=== PATIENT | male | born 1975 | race African-American/Black ===

== ENCOUNTER 2020-06-18 10:55 | Outpatient (CLI) | payer OTHER ==
--- NOTE | 2020-06-18 14:17 | RAD ---
RIGHT KNEE 3 VIEWS: Date: 06/18/2020 INDICATION: History of right knee pain. COMPARISON: None. FINDINGS: There are small marginal osteophytes affecting the medial femorotibial and patellofemoral compartment . Enthesopathic change is seen off the superior patella. There is mild joint capsular distention. No acute fracture is evident. IMPRESSION: Mild osteoarthrosis of the right knee with mild joint capsular distention. POS: BH
== END 2020-06-18 10:56 | disposition home or self-care (01) ==
LOC: SCSRAD 10:55
PROVIDERS: ATTEND Physician Assistant
DX: M25.561 Pain in right knee (principal); M17.11 Unilateral primary osteoarthritis, right knee; M25.861 Other specified joint disorders, right knee
CPT/HCPCS: 80053; 83520; 85652; 86038; 86140; 86200; 86225

== ENCOUNTER 2024-05-25 07:39 | Outpatient (CLI) | payer BC ==
[2024-05-25 09:07] LABS: #Basophils 0.08 10x3/uL (0.0-0.2); %Basophils 0.9 % (0.0-1.0); %Eosinophils 6.5 % (0.0-10.0); %Lymphocytes 42.2 % (21.0-51.0); %Monocytes 7.7 % (0.0-10.0); %Neutrophils 42.4 % (42.0-75.0); Hematocrit 38.3 % (42.0-52.0); Hemoglobin 13.7 g/dL (14.0-18.0); Mean Corpuscular HGB CONC 35.8 g/dL (32.0-36.0); Mean Corpuscular Hemoglobin 32.2 pg (27.0-31.0); Mean Corpuscular Volume 89.9 fL (78.0-98.0); Platelet Count 309 10x3/uL (130-400); RBC Distribution Width 15.1 % (11.5-14.5); Red Blood Cell (RBC) Count 4.26 mill/uL (4.70-6.10)
[2024-05-25 09:14] LABS: Bacteria/HPF None Seen HPF (None Seen); Bilirubin Negative (Negative); Blood, Urine Negative (Negative); Clarity Clear (Clear); Glucose, Urine (Dipstick) Normal (Negative); Ketone, Urine Negative (Negative); Leukocyte Negative Leu/uL (Negative); Nitrite Negative (Negative); Protein, Urine (Dipstick) 10 mg/dL (Neg-Trace); RBC/HPF 0-3 HPF (0-3); Specific Gravity, Urine 1.014 (1.002-1.036); Squamous Epithelial None Seen HPF (0-3); Urobilinogen Normal mg/dL (Less than 2); WBC/HPF None Seen HPF (0-3); pH, Urine 6.5 (5.0-9.0)
[2024-05-25 09:19] LABS: Anion Gap 14 mmol/L (10-20); BUN (Urea Nitrogen) 13 mg/dL (8.9-20.6); Calc. Creatinine Clearance 0 mL/min (70-130); Calcium 9.3 mg/dL (7.8-10.44); Carbon Dioxide 23 mmol/L (22-29); Chloride 106 mmol/L (98-107); Estimated GFR 101; Glucose 89 mg/dL (70-105); Potassium 3.2 mmol/L (3.5-5.1); Sodium 140 mmol/L (136-145)
[2024-05-25 09:34] LABS: PTT 33.2 sec (22.9-36.1); Prothrombin Time 12.8 sec (12.0-14.7)
== END 2024-05-25 07:40 | disposition home or self-care (01) ==
LOC: LABBT 07:39
PROVIDERS: ATTEND Urology
DX: Z01.818 Encounter for other preprocedural examination (principal); Z12.5 Encounter for screening for malignant neoplasm of prostate; R97.20 Elevated prostate specific antigen [PSA]; E66.01 Morbid (severe) obesity due to excess calories; R35.0 Frequency of micturition
CPT/HCPCS: 71046; 80048; 81001; 84153; 85025; 85610; 85730; 87086

== ENCOUNTER 2024-06-05 06:28 | Day surgery (SDC) | payer BC ==
[2024-05-25 08:28] VITALS: BMI 45.0
[2024-06-05] MEDS ORDERED: Sodium Chloride 0.9% 100 ML ONE (07:10)
[2024-06-05] MEDS ORDERED: LevoFLOXacin D5W 500 mg (100 mL) BAG ONE (07:10)
[2024-06-05] MEDS ORDERED: cefTRIAXone (ROCEPHIN) 2 GM VIAL ONE (07:10)
[2024-06-05] MEDS ORDERED: fentaNYL 50 mcg/mL 1 mL Vial ONE (08:13)
[2024-06-05] MEDS ORDERED: PROPOFOL 20 ML ONE ×3 (08:13→08:14)
[2024-06-05] MEDS ORDERED: Midazolam HCl 2 mg/2 ml Vial ONE (08:13)
[2024-06-05] MEDS ORDERED: Lidocaine 2% PF 5 ML VIAL ONE (08:14)
[2024-06-05] MEDS ORDERED: Tamsulosin HCl 0.4 MG CAP ONE (09:35)
== END 2024-06-05 10:30 | disposition home or self-care (01) ==
LOC: SDC 06:28
PROVIDERS: ATTEND Urology
PROC: 0TJB8ZZ Inspection of Bladder, Via Natural or Artificial Opening Endoscopic (ICD-10-PCS; principal; 2024-06-05)
PROC: 0VB07ZX Excision of Prostate, Via Natural or Artificial Opening, Diagnostic (ICD-10-PCS; principal; 2024-06-05)
DX: N41.0 Acute prostatitis (principal); N41.1 Chronic prostatitis; R97.20 Elevated prostate specific antigen [PSA]; I10 Essential (primary) hypertension; E78.5 Hyperlipidemia, unspecified; E66.01 Morbid (severe) obesity due to excess calories; E87.6 Hypokalemia; Z68.42 Body mass index [BMI] 45.0-49.9, adult; Z87.891 Personal history of nicotine dependence; Z98.890 Other specified postprocedural states; Z88.8 Allergy status to other drugs, medicaments and biological substances; Z79.82 Long term (current) use of aspirin; Z79.899 Other long term (current) drug therapy
CPT/HCPCS: 36416; C1747; G0416; J0696; J1956; J2250; J2704; J3010